=== PATIENT | male | born 1965 | race Caucasian/White ===

== ENCOUNTER 2020-12-29 01:51 | Outpatient (CLI) | payer BC, SELFPAY ==
[2020-12-29 16:02] LABS: Hemoglobin A1C 12.3 % (<5.7)
[2020-12-29 16:48] LABS: Calculated LDL 89 mg/dL (<100); Cholesterol 186 mg/dL (<200); HDL Cholesterol 46 mg/dL (40-60); Triglyceride 259 mg/dL (<150)
[2020-12-30 18:19] LABS: PSA, Screening 2.2 ng/mL (0.0-3.5)
== END 2020-12-29 01:52 | disposition home or self-care (01) ==
LOC: LBO 01:51
PROVIDERS: Nurse Practitioner Family; PCP Emergency Medicine; Visit Provider Family Medicine
DX: E11.9 Type 2 diabetes mellitus without complications; Z12.5 Encounter for screening for malignant neoplasm of prostate
CPT/HCPCS: 36415; 80061; 84153; 83036

== ENCOUNTER → 2022-03-08 15:04 | Outpatient (CLI) | payer OTHER, BC, SELFPAY ==
--- NOTE | 2022-03-08 14:26 | DI.RAD_ITS ---
Exam(s) XR KNEE LT 3V AP,LAT,SELENA EXAM: XR KNEE LT 3V AP,LAT,SELENA CLINICAL HISTORY: pain s/p fall, ? knee or tib/fib frax M79.605 PAIN IN LEFT LEG. TECHNIQUE: 2D digital imaging was performed of the left knee. Four images were obtained. AP, later al and PA tunnel views were obtained. COMPARISON: No exams were available for comparison FINDINGS: BONES: There is a nondisplaced oblique fracture through the proximal metaphysis of the left fibula. No bony destructive lesion is seen. Postsurgical changes of a prior ACL repair. JOINTS: The knee is normally aligned. No joint effusion is seen. SOFT TISSUE: There is a soft tissue calcification adjacent to the medial femoral condyle which may re present prior injury. It does not appear to be acute. IMPRESSION: Acute nondisplaced fracture of the proximal metaphysis of the left fibula. DATA REPOSITORY: RADIATION DOSE DELIVERED:
--- OUTSIDE RECORDS SUMMARY | 2022-03-08 15:07 | XMS_ITS | Encounter Summary ---
:1965 [place] [address] Care Team Providers Name Role Phone Dino Son DO Primary Care Provider Reason for Visit Reason Comments Follow-up Encounter Details Date Type Department Care Team Description 04/25/2012 Follow-Up General Surgery at Kane Parrish MD Ulcerative (chronic) [facility] enterocolitis (Primary [facility] DR Suarez) [facility] [place] [address] [place] [address] [phone] Social History Tobacco Use Types Packs/Day Years Used Date Smoking Tobacco: Former Alcohol Use Standard Drinks/Week Comments Not Asked 0 (1 standard drink = 0.6 oz pure alcoho l) Sex Assigned at Date Recorded Not on file documented as of this encounter Last Filed Vital Signs Vital Sign Reading Time Taken Comments Blood Pressure 137/89 04/25/2012 3:22 PM EST Pulse 99 04/25/2012 3:22 PM EST Temperature 36.5 ??C (97.7 ??F) 04/25/2012 3:22 PM EST Respiratory Rate 16 04/25/2012 3:22 PM EST Oxygen Saturation 98% 04/25/2012 3:22 PM EST Inhaled Oxygen Concentration - - Weight 105.2 kg (231 lb 14.4 oz) 04/25/2012 3:22 PM EST Height - - Body Mass Index - - documented in this encounter Progress Notes Kane Parrish MD - 04/25/2012 3:58 PM EST Mr. Betts is a 47-year-old male who is 12-1/2 years status post proctocolectomy with ileal pouch-anal anastomosis for intractable ulcerative colitis. I have been following the patient since March 2008 when he presented with symptoms of acute pouchitis. Those symptoms responded well to a two-week course of Flagyl. Patient returns for routine followup evaluation today. 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 He enjoys the increased activity. He reports that his weight has decreased from 252 pounds to 232 pounds in the last few months. Patient has not experienced any change in bowel pattern. He generally is having three to five bowel movements per day. He occasionally gets up at night to defecate but this is usually related to ingestion of some unusual food item in the evening. He reports that he avoids a variety of high-fiber foods because he finds they increase frequency of bowel movements. He does not experience any urgency with defecation. He rarely experiences any seepage or leakage from the anal area. He can selectively evacuate flatus. He occasionally notes minor amounts of bright red blood on the toilet paper. There has been no pain with defecation. No other medical problems have developed since the patient was last seen. He is being followed for a history of type 2 diabetes. He recently discontinued the metformin and is trying to manage his diabetes with weight reduction but acknowledges that he is not checking his blood sugars as frequently as he should. On physical exam, the patient is an obese male in no acute distress. Abdomen is soft and nondistended without organomegaly or mass. There are well-healed incisions in the midline and in the right lower quadrant. Inspection of the perineum reveals perianal skin to be healthy. Anal exam reveals adequate sphincter tone and reasonable augmentation with squeeze. No masses are evident. The pouch-anal anastomosis is palpable and is widely patent. Flexible endoscopic examination is performed to a distance of 35 cm. This includes inspection of a relatively long length of afferent limb. There is patchy erythema in the mucosa over the afferent limb and ileoanal pouch. There are no discrete ulcerations. The effluent within the pouch is relatively liquid in consistency but the patient reports that he has not eaten any solid foods since last evening in preparation for the exam today. Impression and Plan: Status post proctocolectomy with ileal pouch-anal anastomosis for ulcerative colitis, currently doing well. Patient has a satisfactory functional result with the procedure. I have suggested patient resume a trial with fiber supplement to optimize consistency of bowel movements and see if this might alleviates some of the minor troubles with leakage that he is experiencing. Have recommended one teaspoon in juice or water in the morning and in midafternoon. Given the patient's stable functional status, will schedule a followup visit to see me in 18 months. The need to contact me if he experiences a change in bowel pattern or overt rectal bleeding was reviewed. documented in this encounter Plan of Treatment Not on filedocumented as of this encounter Visit Diagnoses Diagnosis Ulcerative (chronic) enterocolitis - Alisa lehman documented in this encounter Care Teams Manager Housekeeping Relationship Specialty Start Date End Date Dino Son DO PCP - General 03/09/10 [address] [place] [address] documented as of this encounter
--- OUTSIDE RECORDS SUMMARY | 2022-03-08 15:07 | XMS_ITS | Clinical Summary ---
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
--- OUTSIDE RECORDS SUMMARY | 2022-03-08 15:07 | XMS_ITS | Encounter Summary ---
:1965 Author Organization [facility] Address [address] [place] [address] Care Team Providers Name Role Phone Dino Son DO Primary Care Provider Encounter Details Date Type Department Care Team Description 09/07/2017 Results Only [facility]- Inder Rain MD [phone] [place] [address] [place] [address] (Wo rk) Social History Tobacco Use Types Packs/Day Years Used Date Smoking Tobacco: Never Assessed Sex Assigned at Date Recorded Not on file documented as of this encounter Plan of Treatment Not on filedocumented as of this encounter Procedures Procedure Name Priority Date/Time Associated Diagnosis Comme nts CYTOPATHOLOGY Routine 09/07/2017 0:00 EDT Results for this procedure are i n the results section . documented in this encounter Results CYTOPATHOLOGY (09/07/2017 0:00 EDT) Component Value Ref Test Analysis Performed At [facility] Method Time Signature Pathology CYTOPATHOLOGY REPORT [facility] Report: CENTER Reports generated via electronic interface contain origina l data; LABORATORY however they are lacking the format of the original report. SERVICES Caution should be taken when reading/interpreting unformatte d reports. Name: ? FABIÁN ISBELL ? Accession #: ? [id number] : ? 1965 (Age: [age]) ??M ?Collect Date: ? 09/07/2017 Location: ? [facility] ? Receive Date: ? 09/08/2017 Provider: ? INDER ROLLINS MD Copy to: ?DINO SON DO ? CYTOLOGIC DIAGNOSIS: LEFT SUBMENTAL NECK MASS, FINE NEEDLE ASPIRATION: - ?Negative for malignancy. - ?Scattered ma crophages, and few mixed acute and chronic inflammatory cells, ? and amorphous proteinaceous debris. Document reviewed and electronically signed by: ? KELSEA PEREZ MD Report Date: ??09/08/2017 16:42 By the signature above, the attending physician certifies th at he/she has personally conducted a gross and/or microscopic examin ation of the described specimens and rendered or confirmed the above diagnosis. Specimen Type: ? Head/Neck, Fine Needle Aspiration, Left Submental Neck Mass Clinical History: ? Cystic left submental neck mass in smoker ? Gross Description: ? One vial of Cytolyt was rece ived and processed by selective cellular enhancement technique. ? End of Report Specimen (Source) Anatomical Collection Method Collection Time Re ceived Time Location / / Volume Laterality 09/07/2017 09/08/2017 9:13 EDT Inder Rollins MD PATHOLOGY ORDERABLES Performing Organization Address City/State/ZIP Code Phon e Number [facility] [address] [place] [address] SERVICES documented in this encounter Visit Diagnoses Not on filedocumented in this encounter Care Teams Staffing Mgr Relationship Specialty Start Date End Date Dino Son DO PCP - General 02/23/15 [address] [place], [place] [phone] documented as of this encounter
--- OUTSIDE RECORDS SUMMARY | 2022-03-08 15:07 | XMS_ITS | Encounter Summary ---
:1965 Author Organization [facility] Address [address] [place] [address] Care Team Providers Name Role Phone Dino Son Primary Care Provider Encounter Details Date Type Department Care Team Description 12/30/2020 Lab Requisition [facility] Outr Resulting Lab, Pathology & Laboratory Provider [facility] [address] [place] [address] Social History Tobacco Use Types Packs/Day Years Used Date Smoking Tobacco: Never Assessed Sex Assigned at Date Recorded Not on file documented as of this encounter Plan of Treatment Not on filedocumented as of this encounter Procedures Procedure Name Priority Date/Time Associated Comments Diagnosis PSA TOTAL, Routine 12/29/2020 15:28 Results for this DIAGNOSTIC EDT procedure are i n the results section. documented in this encounter Results PSA TOTAL, DIAGNOSTIC (12/29/2020 15:28 EDT) P athologist Signature PSA 2.2 0.0 - 3.5 12/30/2020 [facility] ng/mL 18:14 EDT [facility] LAB[facility] SERVICES Specimen Anatomical Collection Method Collection Time Receive d Time (Source) Location / / Volume Laterality Blood VENOUS BLOOD / 12/29/2020 15:28 Unknown EDT 16:01 EDT Narrative [facility] SERVICES - 12/30/2020 18:14 EDT NOTE: Serum PSA concentration should not be in terpreted as absolute evidence for the presence or absence of malignant disease. Assayed on Siemens ADVIA NetLexaur XPT usi ng chemiluminescent technology.??Values obtained by using different assay methods cannot be used interchangeably. Provider Outr Resulting Lab CHEMISTRY & BLOOD GAS ARJUN JOE Performing Organization Address City/State/ZIP Code Phon e Number [facility] [address] [place] [address] SERVICES documented in this encounter Visit Diagnoses Not on filedocumented in this encounter Care Teams Physician [facility] Relationship Specialty Start Date End Date Dino Son DO PCP - General 02/23/15 [address] [place], [place] [phone] documented as of this encounter
--- OUTSIDE RECORDS SUMMARY | 2022-03-08 15:07 | XMS_ITS | Encounter Summary ---
:1965 [place] [address] Care Team Providers Name Role Phone Dino Son DO Primary Care Provider Reason for Visit Reason Comments Follow-up Encounter Details Date Type Department Care Team Description 07/23/2010 Follow-Up General Surgery at Kane Parrish MD Ulcerative (chronic) [facility] enterocolitis (Primary [facility] DR Suarez) [facility] GENERAL SURGERY [place] [id number] [place] [address] [phone] Social History Tobacco Use Types Packs/Day Years Used Date Smoking Tobacco: Former Alcohol Use Standard Drinks/Week Comments Not Asked 0 (1 standard drink = 0.6 oz pure alcoho l) Sex Assigned at Date Recorded Not on file documented as of this encounter Last Filed Vital Signs Vital Sign Reading Time Taken Comments Blood Pressure - - Pulse - - Temperature - - Respiratory Rate - - Oxygen Saturation - - Inhaled Oxygen Concentration - - Weight 103.6 kg (228 lb 6.4 oz) 07/23/2010 2:31 PM EDT Height - - Body Mass Index - - documented in this encounter Progress Notes Kane Parrish MD - 07/23/2010 3:27 PM EDT Mr. Betts is a 45-year-old male who is 10-1/2 years status post proctocolectomy with ileal pouch anal anastomosis for intractable ulcerative colitis. He was initially seen by me in March 2008 for symptoms of acute pouchitis. Those symptoms responded well to a two-week course of Flagyl. The patient returns for a routine followup evaluation today. He reports that his bowel pattern has been stable. He currently has three to six bowel movements per day. The frequency of bowel movements varies according to the quantity of food he consumes and the consumption of spicy foods. Patient generally gets up once at night to defecate. He occasionally notes minor amounts of seepage with passage of flatus. This is more common at night. Patient has some minor troubles with perianal skin irritation. Patient notes that his weight has increased more than 20 pounds since he was last seen by me. He attributes this weight gain to inactivity during the winter. Patient has not been experiencing any problems with abdominal pain or cramps. Other current, active medical problems include rxp-usmshba-apyurbbmt diabetes. Medications are limited to metformin. Patient has no medication allergies. On physical exam, the patient is well appearing. Abdomen is obese and soft without organomegaly or mass. Midline and right lower quadrant incisions are well healed. There is no tenderness to palpation, Inspection of the perineum reveals the perianal skin to be mildly excoriated. Anal exam reveals fair resting tone without mass. Flexible endoscopic examination is performed to the level of the afferent limb to the ileoanal pouch. The pouch mucosa is healthy. There is no contact friability, and there are no mucosal ulcerations. IMPRESSION: Status post proctocolectomy with ileal pouch anal anastomosis for ulcerative colitis, currently doing well. Patient does note that he tends to fatigue easily and wonders if I could give him a letter for work saying that he cannot work more than 12-hour shifts. I told him that I could certainly explain his need for ready access to bathroom facilities, but the fact he has undergone the ileoanal pouch procedure in and of itself would not be a cause for fatigue, nor would it limit the length of time he could be at work. I have recommended that he contact his primary care physician for a more complete evaluation of these symptoms. Assuming the patient's bowel pattern remains under good control, I have simply recommended a followup evaluation to see me in 18 months. Patient is in agreement with the plan. documented in this encounter Plan of Treatment Not on filedocumented as of this encounter Visit Diagnoses Diagnosis Ulcerative (chronic) enterocolitis - Alisa dominik documented in this encounter Care Teams Room Service Manager Relationship Specialty Start Date End Date Dino Son DO PCP - General 03/09/[address] [place] [address] documented as of this encounter
--- OUTSIDE RECORDS SUMMARY | 2022-03-08 15:07 | XMS_ITS | Encounter Summary ---
:1965 Author Organization [facility] Address [address] [place] [address] Care Team Providers Name Role Phone Unavailable Primary Care Provider Unavailable Encounter Details Date Type Department Care Team Description 01/08/2004 Results Only [facility] - Inder Blanchard MD [address] [place] [address] [place] [address] [phone] Social History Tobacco Use Types Packs/Day Years Used Date Smoking Tobacco: Never Assessed Sex Assigned at Date Recorded Not on file documented as of this encounter Plan of Treatment Not on filedocumented as of this encounter Procedures Procedure Name Priority Date/Time Associated Diagnosis Comme [facility] SURGICAL PATHOLOGY Routine 01/08/2004 0:00 EDT Re sults for this procedure are i n the results section. documented in this encounter Results SURGICAL PATHOLOGY (01/08/2004 0:00 EDT) Component Value Ref Test Analysis Performed At [facility] Method Time Signature Pathology SURGICAL PATHOLOGY REPORT [facility] Report: Reports generated via electronic interface contain paulaa l data; JEANETTE JAMIL however they are lacking the format of the original report. Caution should be taken when reading/interpreting unformatte d reports. Name: ? FABIÁN ISBELL ? Accession #: ? [id number] ? : ? 1965 (Age: 38) ??M ? Collect Date: ? 01/08/2004 ? Location: ? [facility] ? Receive Date: ? 01/08/2004 ? Provider: INDER ROLLINS MD Copy to: VERNA GARCIA DO ? Final Pathologic Diagnosis: A. ?Turbinate, left inferior, excision: 1. ?Respiratory mucosa with chronic infla mmatory infiltrate. ?? B. ?Turbinate, right inferior, excision: 1. ?Respiratory mucosa with chronic inflammator y infiltrate. C. ?Uvula, excision: 1. ?Squamous mucosa with marked submucosal john a. ?? Document reviewed and electronically signed by: AUBREY MANDUJANO MD Report ??Date: 01/12/2004 18:18 By the signature above, the attending physician certifies th at he/she has personally conducted a gross and/or microscopic examin ation of the described specimens and rendered or confirmed the above diagnosis. Specimen(s) Received: A. ?Inferior left turbinate (#1) B. ?Inferior right turbinate (#2) C. ?Uvula Clinical History: ? Long uvula, angioedema; nasal obstruction; deviated n jemal septum Gross Description: ? Received in formalin labelled Masure and inferior left turbinate is a urbina-pink, 2.2 x 1.0 x 0.3 cm portion of mucosa and underly ing cartilaginous material. ??No definitive no dules are identified. ??The specimen is longitudinally bisected and entirely submitted as (A). Received in formalin labelled Masure and infe rior right turbinate are two ubrina-pink, irregular soft tissue fragments measuring 1.6 x 1. 0 x 0.3 cm in aggregate. ??No definitive nodules identified. ??The specime n is entirely submitted as (B). ?? Received in formalin labelled Masure and uvula is a ta n-pink, smooth to wrinkled, 1.2 x 1.0 x 0.6 cm, triangular soft tissue. ??The specimen is longitudinally bisected revealing a white, homogeneous cut s urface. ??The specimen is entirely submitted as (C). ??(Jessica Tejada)/sunshine End of Report Specimen (Source) Anatomical Collection Method Collection Time Re ceived Time Location / / Volume Laterality 01/08/2004 01/08/2004 15:3 7 EDT Inder Rollins MD PATHOLOGY ORDERABLES Performing Organization Address City/State/ZIP Code Phon e Number [facility] [address] [place] [address] SERVICES MIN [facility] [address] [place] [address] documented in this encounter Visit Diagnoses Not on filedocumented in this encounter
== END ==
PROVIDERS: PCP Nurse Practitioner Family; Visit Provider Nurse Practitioner Family
DX: S82.832A Other fracture of upper and lower end of left fibula, initial encounter for closed fracture (principal); X58.XXXA Exposure to other specified factors, initial encounter
CPT/HCPCS: 73562

== ENCOUNTER → 2022-03-09 14:25 | Outpatient (CLI) | payer OTHER, SELFPAY ==
--- NOTE | 2022-03-09 13:15 | DI.RAD_ITS ---
Exam(s) XR TIB/FIB LT XR ANKLE LT COMPLETE EXAM: XR TIB/FIB LT and XR ankle LT complete CLINICAL HISTORY: acute pain in leg. Fibula is fractured proximal, M79.605. TECHNIQUE: 2D digital imaging was performed of the left ankle, tibia and fibula. Five images were ob tained. AP and lateral views were obtained. COMPARISON: CR XR KNEE LT 3V AP,LAT,SELENA from 03/08/2022 CR XR ANKLE LT COMPLETE from 03/09/2022 FINDINGS: BONES: There is again seen a nondisplaced fracture of the proximal metaphysis of the fibula. No bony destructive lesion is seen. Visualized portion of knee and ankle joints are unremarkable. There is s oft tissue swelling around the ankle laterally. SOFT TISSUE: Normal. IMPRESSION: Nondisplaced fracture of the proximal metaphysis of the fibula. DATA REPOSITORY: RADIATION DOSE DELIVERED:
== END ==
PROVIDERS: PCP Nurse Practitioner Family; Visit Provider Nurse Practitioner Family
DX: M79.662 Pain in left lower leg (principal); M25.572 Pain in left ankle and joints of left foot; M79.89 Other specified soft tissue disorders; S82.832D Other fracture of upper and lower end of left fibula, subsequent encounter for closed fracture with routine healing; X58.XXXD Exposure to other specified factors, subsequent encounter
CPT/HCPCS: 73590; 73610

== ENCOUNTER 2022-04-25 11:00 | Outpatient (CLI) | payer OTHER, BC, SELFPAY ==
--- NOTE | 2022-04-25 13:30 | DI.RAD_ITS ---
Exam(s) XR KNEE LT 2V AP,LAT EXAM: XR KNEE LT 2V AP,LAT INDICATION: L fib fx. COMPARISON: CR XR KNEE LT 3V AP,LAT,SELENA from 03/08/2022 TECHNIQUE: 2D digital imaging was performed. Two views. FINDINGS: The proximal fibular fracture remains nondisplaced. No additional fractures are identified. Prior A CL repair. Joint spaces are maintained. No joint effusion DATA REPOSITORY: RADIATION DOSE DELIVERED:
== END 2022-04-25 11:01 | disposition home or self-care (01) ==
LOC: DIORS 04-26 08:36
PROVIDERS: PCP Nurse Practitioner Family; Visit Provider Physician Assistant
DX: S82.832D Other fracture of upper and lower end of left fibula, subsequent encounter for closed fracture with routine healing (principal); X58.XXXD Exposure to other specified factors, subsequent encounter
CPT/HCPCS: 73560

== ENCOUNTER 2022-06-06 15:52 | Outpatient (CLI) | payer OTHER, SELFPAY ==
--- NOTE | 2022-06-06 15:45 | DI.RAD_ITS ---
Exam(s) XR ANKLE LT 2V EXAM: XR ANKLE LT 2V CLINICAL HISTORY: F/U L FIB FRACTURE TECHNIQUE: 2D digital imaging was performed. Three views. COMPARISON: CR XR ANKLE LT COMPLETE from 03/09/2022 FINDINGS: BONES: No acute or subacute fracture is present. No bony destructive lesion is seen. Small heel spu r is noted. JOINTS:The ankle mortise is normally aligned. SOFT TISSUE: Vascular calcification. IMPRESSION: Unremarkable radiographs of the left ankle. DATA REPOSITORY: RADIATION DOSE DELIVERED:
--- NOTE | 2022-06-06 15:45 | DI.RAD_ITS ---
Exam(s) XR KNEE LT 2V AP,LAT EXAM: XR KNEE LT 2V AP,LAT INDICATION: F/U FIB FRACTURE. COMPARISON: CR XR KNEE LT 2V AP,LAT from 04/25/2022 TECHNIQUE: 2D digital imaging was performed. Two views. FINDINGS: There has been continued healing of the proximal fibular fracture. Prior ACL repair is noted. The f emoral tibial joint spaces are well maintained. Calcification is again noted adjacent to the medial femoral condyle. DATA REPOSITORY: RADIATION DOSE DELIVERED:
== END 2022-06-06 15:53 | disposition home or self-care (01) ==
LOC: DIORS 15:53
PROVIDERS: PCP Nurse Practitioner Family; Referring Provider Nurse Practitioner Family; Visit Provider Student in an Organized Health Care Education/Training Program
DX: S82.832D Other fracture of upper and lower end of left fibula, subsequent encounter for closed fracture with routine healing (principal); X58.XXXD Exposure to other specified factors, subsequent encounter
CPT/HCPCS: 73560; 73600

== ENCOUNTER 2023-02-10 13:19 | Observation (INO) | payer BC, SELFPAY ==
[2023-02-10 13:31] VITALS: BP 153/106; PULSE 98; RESP 20; TEMP 36.1; O2SAT 100
--- NOTE | 2023-02-10 13:45 | DI.CT_ITS ---
Exam(s) CT ABDOMEN PELVIS W EXAM: CT ABDOMEN PELVIS W CLINICAL HISTORY: Abdominal pain concern for SBO. TECHNIQUE: Imaging Protocol: Axial computed tomography images with coronal and sagittal reformatted images were created and reviewed CONTRAST MATERIAL: Intravenous: Omnipaque 350 Contrast volume:100 ml Oral: / no COMPARISON: No exams were available for comparison FINDINGS: ABDOMEN and PELVIS: Lung Bases: Normal where visualized. Liver: Normal density. No measurable mass. Gallbladder and biliary tract: No radiodense calculus or dilation. Pancreas: Normal density. No abnormal calcifications or inflammatory process. No evidence of mass. Spleen: Normal. Kidneys: Normal size, contour and axis. No radiodense stones. No obstructive uropathy. No suspicious masses seen. Adrenal glands: No masses seen. Vasculature: Abdominal aorta non-dilated. Soft tissues: Unremarkable. Bladder: No gross wall thickening. No calculi.No focal mass. Bowel: Multiple dilated loops of small bowel in upper and lower abdomen some loops contain feculent m aterial. A small bowel anastomosis seen anteriorly below the level of the umbilicus. The cause of t he obstruction appears to be at or near the level of the anastomosis. Additional colonic anastomoses . Subtotal colectomy. Some decompressed loops of bowel are seen in the pelvis. No significant wall thickening. No pneumatosis. Peritoneal cavity: No ascites. No focal collection or mesenteric inflammatory response. Bones: Unremarkable for age. Reproductive organs: Prostate within normal limits. Left testicle is located within the inguinal jeremy l. Lymph nodes: Unremarkable. IMPRESSION:: Subtotal colectomy and several anastomoses. Small-bowel obstruction at near the level of the anterior small bowel anastomosis. Findings called to Dr. Barba of the emergency department. RADIATION DOSE DELIVERED: Total DLP DATA REPOSITORY: All CT scans at this facility are submitted to the National Radiology Data Registry (NRDR) Dose Index Registry (DIR) with the [employer] (ACR). RADIATION OPTIMIZATION: All CT scans at this facility use at least one of these dose optimization te chniques: automated exposure control; mA and/or kV adjustment per patient size (includes targeted exa ms where dose is matched to clinical indication); or iterative reconstruction.
--- NOTE | 2023-02-10 13:53 | W.ED.GENAD ---
Discharge Plan Disposition Patient Disposition: Admit to [facility] Discharge Details Clinical Impression: SBO (small bowel obstruction) Primary Care Provider: Vladimir Blankenship ED Provider: Kane Barba [place] Meds and New Rx's Prescriptions: No Action Jardiance 25 mg tablet 25 mg PO DAILY Qty: 90 3RF glipizide 5 mg tablet 5 mg PO DAILY Qty: 90 3RF sildenafil 50 mg tablet 50 mg PO DAILY PRN (Reason: sexual activity) Qty: 5 4RF Rx Instructions: administer 30 minutes to 4 hours before activity ascorbate calcium (vitamin C) 500 mg tablet 500 mg PO DAILY multivitamin [Once Daily] 1 EACH tablet 1 ea PO DAILY aspirin [Aspir-81] 81 MG tablet,delayed release (DR/EC) 81 mg PO DAILY cyanocobalamin (vitamin B-12) [Vitamin B-12] 500 MCG tablet 500 mcg PO DAILY Patient Comments: 05/12/17 restarted . harsh 01-27-17 pt reports that he is currently not taking this med. hb (DME) lancets [OneTouch UltraSoft Lancets] 1 EACH misc 1 ea Intradermal TID Qty: 270 Rx Instructions: DX:250. (DME) OneTouch Ultra Test 1 EACH strip 1 ea Miscellaneous QAM Qty: 100 Rx Instructions: DX:250. omeprazole 40 mg capsule,delayed release(DR/EC) 40 mg PO DAILY Qty: 90 3RF HPI General Date/Time Provider Initiated Documentation: 02/10/23 13:22. HPI Narrative: MDM This is an uncomfortable appearing afebrile and not tachycardic 57-year-old male with history of ulcerative colitis and status post proctocolectomy with ileal pouch anal anastomosis now in the emergency department with obstipation and history, physical, and ultrasound concerning for SBO. Will obtain CT scan with IV contrast. I ordered a lactate to assess for bowel ischemia. Patient is not septic appearing and as result will defer broad-spectrum antibiotics at this point in time. We will keep patient n.p.o. provide 1 L of IV fluids treat pain with hydromorphone and nausea with ondansetron. No chest pain to suggest ACS will defer ECG. No pain out of proportion to suggest necrotizing soft tissue infection. No right lower quadrant tenderness to suggest appendicitis. No left upper quadrant tenderness to suggest splenic arterial aneurysm. No dysuria and no frequency to suggest UTI. No history of recent trauma and clear breath sounds so I am not concerned for pneumothorax. No rash to the abdomen to suggest zoster. I have ordered a COVID swab as anticipate patient will require hospitalization. 2:10 PM Mild lactic acidosis with a serum lactate of 2.1. Given the patient is receiving fluids will defer repeat lactate. 2:40 PM Comprehensive metabolic panel showing no SAM. Mild anion gap and mild hyperglycemia but normal bicarbonate??not consistent with DKA. Very mild hypercalcemia which should improve with 1 L of IV fluids. No significant LFT abnormalities. Reassuring normal lipase. CBC showing leukocytosis but no anemia. No thrombocytopenia.Pain improved following hydromorphone. 3:15 PM I spoke with radiology as patient was found to have an SBO with a transition point below his umbilicus. I spoke with Dr. Escalante from general surgery who graciously agreed to hospitalize patient. He requested an NG tube which I ordered. I updated the patient on his hospitalization plan. I updated the patient's nurse Jasson on plan for NG tube. Will administer 0.5 mg hydromorphone prior to NG tube placement. Chronic conditions affecting the care of the patient: Ulcerative colitis History obtained from an outside historian: N/A External record review: [facility] [place] Medications: Ondansetron hydromorphone Social determinants of health affecting disposition: N/A Management discussed with: General surgery Treatment/interventions considered: N/A Response to therapies provided: Improved pain status post analgesia HPI This is a 57-year-old male with a history of ulcerative colitis and remote proctocolectomy with ileal pouch anal anastomosis arriving via private vehicle in the setting of nausea vomiting and abdominal pain. Patient reports that he woke up this morning at 2:30 AM with sudden onset abdominal pain. It felt similar to prior episodes of blockages. He last had a bowel movement yesterday. He has not passed any gas today. His last blockage was 1 to 2 years ago. He reports that this resolved spontaneously at home. He denies any fevers chest pain shortness of breath. No dysuria nor frequency. Denies routine tobacco, ethanol, and illicits. Exam General: Well-appearing in no acute distress speaking in complete sentences. Head: Normocephalic, atraumatic. Eye: Extraocular eye movements intact. No conjunctival injection. No scleral icterus. Ear, nose, mouth, throat: Grossly normal inspection. Normal voice, handling secretions normally. Neck: Trachea midline. Cardiovascular: Well-perfused distal extremities. Respiratory: Nonlabored respiration. Clear lungs bilaterally Gastrointestinal: Nondistended abdomen. Moderately distended diffusely tender abdomen. No rebound. No guarding. Musculoskeletal: No edema. Moving all 4 extremities spontaneously. Skin: Normal for age and race, grossly normal temperature and turgor. No acute rash. Neurologic: Alert and appropriate, no apparent acute deficits. Psychiatric: Mood and manner are appropriate. Grooming and personal hygiene are appropriate. Related Data Home Medications Medication Instructions Recorded Confirmed aspirin 81 mg tablet,delayed 81 mg PO DAILY 09/07/12 06/08/22 release (Aspir-) cyanocobalamin (vitamin B-12) 500 500 mcg PO DAILY 09/07/12 06/08/22 mcg tablet (Vitamin B-12) multivitamin (Once Daily tablet) 1 ea PO DAILY 09/07/12 06/08/22 lancets (LiftDNATouch UltraSoft #270 ea 12/04/12 06/08/22 Lancets) blood sugar diagnostic ([employer] #100 strips 05/27/14 06/08/22 Ultra Test strips) omeprazole 40 mg capsule,delayed 40 mg PO DAILY #90 tab-caps 02/25/22 06/08/22 release ascorbate calcium (vitamin C) 500 500 mg PO DAILY 03/14/22 06/08/22 mg tablet empagliflozin 25 mg tablet 25 mg PO DAILY #90 tabs 04/06/22 06/08/22 (Jardiance) glipizide 5 mg tablet 5 mg PO DAILY #90 tabs 04/06/22 06/08/22 sildenafil 50 mg tablet 50 mg PO DAILY PRN sexual activity 04/06/22 06/08/22 #5 tabs Previous Rx's Medication Instructions Recorded omeprazole 40 mg capsule,delayed 40 mg PO DAILY #90 tab-caps 02/25/22 release empagliflozin 25 mg tablet 25 mg PO DAILY #90 tabs 04/06/22 (Jardiance) glipizide 5 mg tablet 5 mg PO DAILY #90 tabs 04/06/22 sildenafil 50 mg tablet 50 mg PO DAILY PRN sexual activity 04/06/22 #5 tabs Allergies Allergy/AdvReac Type Severity Reaction Status Date / Time No Known Allergies Allergy Verified 04/25/22 13:31 General Stated Complaint: Abd Prob QUAN: 3 PFSH All Active Problems (Updated 02/10/23 @ 15:26 by Kane aBrba MD) SBO (small bowel obstruction) (Acute) Peroneal tendinitis of left lower leg (Acute) Non compliance with medical treatment (Acute 05/12/17) History of tobacco use (Acute) Does not smoke, but does dip. Gastroesophageal reflux disease with esophagitis (Acute) Internal derangement of left knee (Acute) Fibula fracture (Acute 03/08/22) This is a left nondisplaced fracture of the proximal metaphysis of the fibula. Left leg pain (Acute) Erectile dysfunction (Chronic) Diabetes mellitus (Chronic) Medical History (Updated 02/10/23 @ 15:26 by Kane Barba MD) Kidney stone Surgical History (Updated 01/31/18 @ 14:34 by Acesis [place]) Vasectomy Repair, ACL (~1996) Total colectomy Family History (Updated 04/07/22 @ 16:15 by Cheyenne Carbajal) Grandmother , 72 Diabetes Grandmother , 72 Personal history of malignant neoplasm PANCREATIC Cancer Mother , 77 No problems noted. Father , 72 No problems noted. Son No problems noted. Son No problems noted. Maternal Grandfather Cancer Paternal Grandfather No problems noted. Social History (Updated 04/08/22 @ 14:25 by Cheyenne Carbajal) Smoking/Tobacco Use Status: Current every day Tobacco Type: smokeless tobacco Smokeless tobacco user: snuff Quit status: considering quitting Smoking risk assessment performed?: Yes Alcohol Intake: current Alcohol Intake frequency: a few times a month Alcohol type: beer, wine and hard liquor Drug use: Never Substance use type: does not use Housing: apartment Communication Needs: Hard of Hearing Pets and animals: No Sexually active: Yes Do you think of yourself as: straight/heterosexual Current gender identity: male What is your relationship status?: How often do you talk on the phone with friends or family?: three or more times per week How often do you get together with friends or relatives?: three or more times per week How often do you attend restorationism or alevism services?: 1-3 times per year Do you belong to any clubs or organized social groups?: no Panel score (0-1 are the most socially isolated patients): 1 What type of physical activity do you participate in: walking and regular exercise Frequency: daily Stormy/Quaker: Jewish Seatbelt use: always Drive intox or ride w/intox explosives truck driver: No Do you feel safe in your relationship?: Yes Course Vital Signs Vital signs: Vital Signs Temperature 36.1 C L 02/10/23 13:31 Pulse 98 H 02/10/23 13:31 Respiratory Rate 20 02/10/23 13:31 Blood Pressure 153/106 H 02/10/23 13:31 Pulse Oximetry 100 02/10/23 13:31 Temperature 36.1 C L 02/10/23 13:31 Temperature Source Tympanic 02/10/23 13:31 Pulse 98 H 02/10/23 13:31 Respiratory Rate 20 02/10/23 13:31 Blood Pressure 153/106 H 02/10/23 13:31 Pulse Oximetry 100 02/10/23 13:31 Oxygen Delivery Method Room Air 02/10/23 13:31 Oxygen Flow Rate 0 02/10/23 13:31 Pain Level 10 02/10/23 13:31 POCUS Exam (ED) Limited Appendix Exam DATE OF EXAM: 02/10/23 TIME OF EXAM: 14:41 PROVIDER THAT PERFORMED THE STUDY: Kane Barba IS THIS A REPEAT EXAM DURING THIS ENCOUNTER: No REASON FOR EXAM: other indication: Abdominal pain VISUALIZED STRUCTURES: Other structure: Small loops of bowel PERTINENT FINDINGS/IMPRESSION: other impression: Dilated loops of small bowel with plicae circulares & bidirectional peristalsis DIFFERENTIAL DIAGNOSES: Limited bedside ultrasound consistent with small bowel obstruction Exam complete
[2023-02-10 14:04] LABS: Abs Immature Grans 0.16 10^3/uL (0.0-0.06); Absolute Basophil Count 0.07 10^3/uL (0.0-0.2); Absolute Eosinophil Count 0.03 10^3/uL (0.0-0.7); Absolute Monocyte Count 0.62 10^3/uL (0.1-0.8); Absolute Neutrophil Count 11.07 10^3/uL (1.2-6.7); Basophils % 0.5; Eosinophils % 0.2; HCT 51.7 % (40.0-50.0); HGB 16.2 g/dL (13.5-17.5); Immature Grans % 1.2; Lymphocytes % 13.7; MCH 24.1 pg (27.0-33.0); MCHC 31.3 % (32.0-36.0); MCV 77 fL (80-95); Monocytes % 4.5; Neutrophils % 79.9; Platelet Count 334 10^3/uL (130-400); RBC 6.73 10^6/uL (4.36-5.78); RDW 17.2 % (11.8-14.1); RDW-SD 44.1 fL; WBC 13.86 10^3/uL (4.4-10.8)
[2023-02-10 14:05] LABS: Lactate 2.1 mmol/L (0.6-1.4)
[2023-02-10] MEDS: HYDROmorphone 2 MG/ML SYR 0.5 MG IVP ×3 (14:07→16:41)
[2023-02-10] MEDS: Normal Saline 1,000 ML 1000 ML IV (14:08)
[2023-02-10] MEDS: Ondansetron 4 MG/2 ML VIAL IVP ×2 (14:09→19:22)
[2023-02-10 14:20] LABS: ALT 25 U/L (16-63); AST 24 U/L (15-37); Alkaline Phosphatase 89 U/L (46-116); Anion Gap 13.2 mmol/L (3-11); BUN 15 mg/dL (7-18); Bilirubin, Total 0.4 mg/dL (0.2-1.0); CO2 25.8 mmol/L (21.0-32.0); CREATININE 1.2 mg/dL (0.70-1.30); Calcium 10.5 mg/dL (8.5-10.1); Chloride 99 mmol/L (98-107); Estimated GFR 69.66 (mL/min/1.73m2); Glucose 208 mg/dL (74-106); Lipase 29 U/L (16-77); Potassium 4.2 mmol/L (3.5-5.1); Sodium 138 mmol/L (136-145); Total Protein 9.8 g/dL (6.4-8.2)
[2023-02-10 14:22] LABS: Diff Comment Diff Reviewed; RBC Morphology Normal
[2023-02-10] MEDS: Omnipaque 350 MG/ML 100 ML BTL IJ (14:36)
[2023-02-10] MEDS: Normal Saline - Diluent 50 ML VIAL IJ (14:39)
[2023-02-10 14:52] LABS: Source Nasal/Nares
--- NOTE | 2023-02-10 15:17 | SCONE_ITS ---
Date of service: 02/10/23 Time of Service: 15:17 Assessment and Plan Assessment and plan (1) SBO (small bowel obstruction): Status: Acute Assessment and plan: 57 yo man with resolving SBO. HD stable. Benign abdomen. Reportedly has COVID because of a test result, but he doesn't complain of any symptoms. PLAN: Remove NG sips of clear heplock IVF tomorrow Likely DC in the AM History of Present Illness Narrative: 24-48 hours of acute abdominal pain. Reported history of total proctocolectomy with ileoanal anastomosis done for UC and prior SBO episodes. CT scan shows SBO at level of a small bowel anastomsis. An NG tube was placed to decompress in the ED. At the bedside tonight, he has passed stool and flatus and his abdominal pain is gone. PFSH All Active Problems (Updated 02/10/23 @ 15:26 by Kane Barba MD) SBO (small bowel obstruction) (Acute) Peroneal tendinitis of left lower leg (Acute) Non compliance with medical treatment (Acute 05/12/17) History of tobacco use (Acute) Does not smoke, but does dip. Gastroesophageal reflux disease with esophagitis (Acute) Internal derangement of left knee (Acute) Fibula fracture (Acute 03/08/22) This is a left nondisplaced fracture of the proximal metaphysis of the fibula. Left leg pain (Acute) Erectile dysfunction (Chronic) Diabetes mellitus (Chronic) Medical History (Updated 02/10/23 @ 15:26 by Kane Barba MD) Kidney stone Surgical History (Updated 01/31/18 @ 14:34 by [employer]) Vasectomy Repair, ACL (~1996) Total colectomy Family History (Updated 04/07/22 @ 16:15 by Cheyenne Carbajal) Grandmother , 72 Diabetes Grandmother , 72 Personal history of malignant neoplasm PANCREATIC Cancer Mother , 77 No problems noted. Father , 72 No problems noted. Son No problems noted. Son No problems noted. Maternal Grandfather Cancer Paternal Grandfather No problems noted. Social History (Updated 04/08/22 @ 14:25 by Cheyenne Carbajal) Smoking/Tobacco Use Status: Current every day Tobacco Type: smokeless tobacco Smokeless tobacco user: snuff Quit status: considering quitting Smoking risk assessment performed?: Yes Alcohol Intake: current Alcohol Intake frequency: a few times a month Alcohol type: beer, wine and hard liquor Drug use: Never Substance use type: does not use Housing: apartment Communication Needs: Hard of Hearing Pets and animals: No Sexually active: Yes Do you think of yourself as: straight/heterosexual Current gender identity: male What is your relationship status?: How often do you talk on the phone with friends or family?: three or more times per week How often do you get together with friends or relatives?: three or more times per week How often do you attend buddhism or synagogue services?: 1-3 times per year Do you belong to any clubs or organized social groups?: no Panel score (0-1 are the most socially isolated patients): 1 What type of physical activity do you participate in: walking and regular exercise Frequency: daily Stormy/Christian: Lutheran Seatbelt use: always Drive intox or ride w/intox patient transportation driver: No Do you feel safe in your relationship?: Yes Exam Narrative Exam Narrative: Gen: Nontoxic, comfortable and interactive Neuro: AxOx3 Psych: Good mood and affect and good insight and understanding Abdomen: Soft, nondistend and nontender Results Last Vital Signs Temp 97.0 F L 02/10/23 13:31 Pulse 98 H 02/10/23 13:31 Resp 20 02/10/23 13:31 BP 153/106 H 02/10/23 13:31 Pulse Ox 100 02/10/23 13:31 Labs 02/10/23 13:55 02/10/23 16:50 Labs: Laboratory Results - last 24 hr 02/10/23 02/10/23 13:55 14:51 WBC 13.86 H RBC 6.73 H Hgb 16.2 Hct 51.7 H MCV 77 L MCH 24.1 L MCHC 31.3 L RDW 17.2 H Plt Count 334 MPV 9.0 Immature Gran % 1.2 Neutrophils % 79.9 Lymphocytes % 13.7 Monocytes % 4.5 Eosinophils % 0.2 Basophils % 0.5 Nucleated RBC % 0.0 Absolute Neutrophils 11.07 H Absolute Lymphocytes 1.90 Absolute Monocytes 0.62 Absolute Eosinophils 0.03 Absolute Basophils 0.07 RBC Morphology Normal VBG Lactate 2.1 H Sodium 138 Potassium 4.2 Chloride 99 Carbon Dioxide 25.8 Anion Gap 13.2 H BUN 15 Creatinine 1.2 Est GFR (CKD-EPI 2020) 69.66 Glucose 208 H Calcium 10.5 H Total Bilirubin 0.4 AST 24 ALT 25 Alkaline Phosphatase 89 Total Protein 9.8 H Albumin 4.0 Lipase 29 COVID-19 Source Nasal/Nares
[2023-02-10 15:28] VITALS: BP 124/67; PULSE 86; RESP 16; O2SAT 94
[2023-02-10 15:51] LABS: COVID-19 PCR POSITIVE (Negative)
[2023-02-10 17:04] LABS: Anion Gap 14.8 mmol/L (3-11); BUN 18 mg/dL (7-18); CO2 21.2 mmol/L (21.0-32.0); Calcium 10.2 mg/dL (8.5-10.1); Chloride 102 mmol/L (98-107); Glucose 195 mg/dL (74-106); Potassium 4.4 mmol/L (3.5-5.1); Sodium 138 mmol/L (136-145)
[2023-02-10 17:51] VITALS: TEMP 36.6
[2023-02-10] MEDS: ACETAMINOPHEN 1,000 MG/100 ML BTL 400 MG IVPB ×2 (17:51→23:00)
[2023-02-10] MEDS: Lactated Ringers 1,000 ML 125 ML IV (17:53)
[2023-02-10] MEDS: Enoxaparin 40 MG/0.4 ML SYR SC (17:53)
[2023-02-10 18:08] VITALS: BP 149/95; PULSE 85; RESP 18; TEMP 36.6; O2SAT 93
[2023-02-10] MEDS: Normal Saline Flush 10 ML SYR IVP (19:22)
[2023-02-11] MEDS: Lactated Ringers 1,000 ML 125 ML IV (02:53)
[2023-02-11 07:35] LABS: Abs Immature Grans 0.03 10^3/uL (0.0-0.06); Absolute Basophil Count 0.05 10^3/uL (0.0-0.2); Absolute Eosinophil Count 0.15 10^3/uL (0.0-0.7); Absolute Lymphocyte Count 1.85 10^3/uL (1.2-3.4); Absolute Neutrophil Count 5.54 10^3/uL (1.2-6.7); Basophils % 0.6; Eosinophils % 1.7; HCT 44.4 % (40.0-50.0); Immature Grans % 0.3; Lymphocytes % 21.5; MCH 24.2 pg (27.0-33.0); MCHC 31.5 % (32.0-36.0); MCV 77 fL (80-95); Monocytes % 11.6; Neutrophils % 64.3; Platelet Count 311 10^3/uL (130-400); RBC 5.79 10^6/uL (4.36-5.78); RDW 16.2 % (11.8-14.1); RDW-SD 44.7 fL; WBC 8.62 10^3/uL (4.4-10.8)
== END 2023-02-11 07:12 | disposition left against medical advice (07) ==
LOC: ER 15:48 → MS 17:15
PROVIDERS: Admitting Provider Student in an Organized Health Care Education/Training Program; Emergency Provider Emergency Medicine; PCP Nurse Practitioner Family; Visit Provider Student in an Organized Health Care Education/Training Program
DX: K56.609 Unspecified intestinal obstruction, unspecified as to partial versus complete obstruction (principal); Z98.0 Intestinal bypass and anastomosis status; Z90.49 Acquired absence of other specified parts of digestive tract; F17.290 Nicotine dependence, other tobacco product, uncomplicated; K21.00 Gastro-esophageal reflux disease with esophagitis, without bleeding; E87.20 Acidosis, unspecified; E11.65 Type 2 diabetes mellitus with hyperglycemia; E83.52 Hypercalcemia; K51.90 Ulcerative colitis, unspecified, without complications; Z79.84 Long term (current) use of oral hypoglycemic drugs; Z79.82 Long term (current) use of aspirin; M76.72 Peroneal tendinitis, left leg; M23.92 Unspecified internal derangement of left knee
CPT/HCPCS: 00123; 36415; 76705; 80048; 80053; 83690; 87635; 96361; 96372; 96374; 96375; 96376; 99285; J1650; 74177; 83605; 85025; G0378; J0131; J1170; J2405; J3490

== ENCOUNTER 2023-05-30 03:25 | Outpatient (CLI) | payer BC, SELFPAY ==
[2023-05-30 12:50] LABS: HCT 51.3 % (40.0-50.0); HGB 15.7 g/dL (13.5-17.5); MCH 24.2 pg (27.0-33.0); MCHC 30.6 % (32.0-36.0); MCV 79 fL (80-95); MPV 9.4 fL (8.0-11.0); Platelet Count 286 10^3/uL (130-400); RDW 17.4 % (11.8-14.1); RDW-SD 45.5 fL
[2023-05-30 12:58] LABS: Anion Gap 9.1 mmol/L (3-11); BUN 17 mg/dL (7-18); CO2 28.9 mmol/L (21.0-32.0); CREATININE 1.2 mg/dL (0.70-1.30); Calculated LDL 129 mg/dL (<100); Chloride 104 mmol/L (98-107); Cholesterol 223 mg/dL (<200); Estimated GFR 69.23 (mL/min/1.73m2); Glucose 165 mg/dL (74-106); HDL Cholesterol 57 mg/dL (40-60); Potassium 4.4 mmol/L (3.5-5.1); Sodium 142 mmol/L (136-145); Triglyceride 185 mg/dL (<150)
[2023-05-30 13:04] LABS: Hemoglobin A1C 9.6 % (<5.7)
[2023-05-30 13:37] LABS: RBC 6.48 10^6/uL (4.36-5.78)
== END 2023-05-30 03:26 | disposition home or self-care (01) ==
LOC: LOS 03:25
PROVIDERS: PCP Nurse Practitioner Family; Visit Provider Nurse Practitioner Family
DX: Z00.00 Encounter for general adult medical examination without abnormal findings (principal); E11.9 Type 2 diabetes mellitus without complications; K21.00 Gastro-esophageal reflux disease with esophagitis, without bleeding; N52.9 Male erectile dysfunction, unspecified
CPT/HCPCS: 36415; 80048; 80061; 85027; 83036

== ENCOUNTER 2025-01-03 00:37 | Outpatient (CLI) | payer OTHER, SELFPAY ==
[2025-01-03 14:26] LABS: Hemoglobin A1C 10.0 % (<5.7)
[2025-01-03 14:33] LABS: ALT 23 U/L (16-63); AST 17 U/L (15-37); Albumin 3.9 g/dL (3.4-5.0); Alkaline Phosphatase 77 U/L (46-116); Anion Gap 8.9 mmol/L (3-11); BUN 23 mg/dL (7-18); Bilirubin, Total 0.4 mg/dL (0.2-1.0); CO2 27.1 mmol/L (21.0-32.0); Calcium 9.4 mg/dL (8.5-10.1); Calculated LDL 129 mg/dL (<100); Chloride 105 mmol/L (98-107); Cholesterol 195 mg/dL (<200); Estimated GFR 76.37 (mL/min/1.73m2); Glucose 157 mg/dL (74-106); HDL Cholesterol 45 mg/dL (>or=40); Potassium 4.4 mmol/L (3.5-5.1); Sodium 141 mmol/L (136-145); TSH (W/Ref FT4) 0.90 uIU/mL (0.36-3.74); Total Protein 7.6 g/dL (6.4-8.2); Triglyceride 109 mg/dL (<150)
[2025-01-03 23:09] LABS: PSA, Screening 3.1 ng/mL (<=4.5)
== END 2025-01-03 00:38 | disposition home or self-care (01) ==
LOC: LOS 00:37
PROVIDERS: PCP Nurse Practitioner Family; Visit Provider Nurse Practitioner Family
DX: Z00.00 Encounter for general adult medical examination without abnormal findings (principal); E11.9 Type 2 diabetes mellitus without complications; K21.00 Gastro-esophageal reflux disease with esophagitis, without bleeding; N52.9 Male erectile dysfunction, unspecified; Z87.891 Personal history of nicotine dependence; Z12.5 Encounter for screening for malignant neoplasm of prostate
CPT/HCPCS: 36415; 80053; 80061; 84153; 83036; 84443

== ENCOUNTER 2025-02-07 03:18 | Outpatient (CLI) | payer OTHER, SELFPAY ==
--- NOTE | 2025-02-07 06:15 | DI.RAD_ITS ---
Exam(s) XR SHOULDER LT COMPLETE 2+V EXAM: XR SHOULDER LT COMPLETE 2+V CLINICAL HISTORY: worsening LT shoulder pain,M25.512. TECHNIQUE: 2D digital imaging was performed. Four views. COMPARISON: No exams were available for comparison FINDINGS: BONES: No acute fracture is present. No bony destructive lesion is seen. JOINTS: No dislocation present. There is minimal spurring at the AC joint. Glenohumeral joint space is maintained. SOFT TISSUE: Normal. IMPRESSION: Mild degenerative changes of the AC joint. DATA REPOSITORY: RADIATION DOSE DELIVERED:
--- NOTE | 2025-02-07 06:15 | DI.RAD_ITS ---
Exam(s) XR ELBOW LT COMPLETE EXAM: XR ELBOW LT COMPLETE CLINICAL HISTORY: left elbow pain,M25.522. TECHNIQUE: 2D digital imaging was performed. Three views. COMPARISON: No exams were available for comparison FINDINGS: BONES: No acute fracture is present. No bony destructive lesion is seen. JOINTS: The elbow is normally aligned. Joint spaces are maintained. No joint effusion is seen. SOFT TISSUE: Normal. IMPRESSION: Unremarkable radiographs of the left elbow. DATA REPOSITORY: RADIATION DOSE DELIVERED:
== END 2025-02-07 03:38 ==
LOC: DI 03:18
PROVIDERS: PCP Nurse Practitioner Family; Visit Provider Nurse Practitioner Family
DX: M25.512 Pain in left shoulder (principal); M25.522 Pain in left elbow; M19.012 Primary osteoarthritis, left shoulder; M19.011 Primary osteoarthritis, right shoulder
CPT/HCPCS: 73030; 73080